=== PATIENT | male | born 1980 | race Caucasian/White ===

== ENCOUNTER 2022-05-17 11:23 | Day surgery (SDC) | payer OTHER ==
[2022-05-15 10:16] LABS: BASOPHILS % (AUTO) 0.5 % (0-1); EOSINOPHILS # (AUTO) 0.7 X10'3 (0-0.9); EOSINOPHILS % (AUTO) 8.2 % (0-6); LYMPHOCYTES # (AUTO) 2.2 X10'3 (1.1-4.8); LYMPHOCYTES % (AUTO) 25.9 % (21-51); MEAN CORPUSCULAR HEMOGLOBIN 29.7 PG (27.0-31.0); MEAN CORPUSCULAR HGB CONC 33.8 g/dL (33.0-36.5); MEAN CORPUSCULAR VOLUME 88.1 FL (78-98); MEAN PLATELET VOLUME 8.4 FL (7.4-10.4); MONOCYTES # (AUTO) 0.6 X10'3 (0-0.9); MONOCYTES % (AUTO) 7.4 % (2-12); NEUTROPHILS # (AUTO) 4.8 X10'3 (1.8-7.7); PRE OP HEMATOCRIT 48.1 % (42.0-52.0); PRE OP HEMOGLOBIN 16.2 g/dL (14.0-17.9); PRE OP PLATELET COUNT 226 X10'3 (140-440); RED BLOOD COUNT 5.46 X10'6 (4.70-6.10)
[2022-05-15 10:28] LABS: ALKALINE PHOSPHATASE 92 IU/L (46-116); BLOOD UREA NITROGEN 12 MG/DL (7-18); BUN/CREATININE RATIO 12.6 (5.4-32.0); CALCIUM 9.1 MG/DL (8.5-10.1); CHLORIDE 102 MMOL/L (99-107); CREATININE 0.95 MG/DL (0.60-1.10); PRE OP ALT 39 U/L (30-65); PRE OP ANION GAP 8 (8-16); PRE OP AST 25 U/L (10-37); PRE OP BILIRUB, TOTAL 0.5 MG/DL (0.0-1.0); PRE OP GLUCOSE 105 MG/DL (70-104); PRE OP POTASSIUM 3.8 MMOL/L (3.4-5.1); PRE OP SODIUM 136 MMOL/L (135-145); TOTAL CARBON DIOXIDE 26.5 MMOL/L (24-32); TOTAL PROTEIN 8.1 G/DL (6.4-8.2); eGFR 88 ML/MIN
[2022-05-17] VITALS (10 sets, daily range): BP systolic 104–144; BP diastolic 66–97
[~2022-05-17] VITALS: Ht 182.9 cm; Wt 108.9 kg
[~2022-05-17 11:23] MED LIST: NO HOME MEDS; ceFAZolin inj. 2,000 MG in dextrose 5%-water 100 ML IV ONE; famotidine 20mg tablet PO ONE; ringers solution, lacted 1,000 ML IV SCH
[2022-05-17] MEDS ORDERED: BUPIVAcaine 0.5% inj/PF 30 ML ONE (12:57)
[2022-05-17] MEDS ORDERED: neostigmine methylsulfate 1 MG/ML 10ml vial ONE (14:49)
[2022-05-17] MEDS ORDERED: glycopyrrolate 0.2mg/ml inj ONE (14:49)
[2022-05-17] MEDS ORDERED: sevoflurane 250ml liquid IH ONE (14:49)
[2022-05-17] MEDS ORDERED: fentaNYL/PF 50MCG/1 ML 2ML syringe ONE ×2 (14:53→15:38)
[2022-05-17] MEDS ORDERED: midazolam 1 mg/ML 2ml injection ONE (14:53)
[2022-05-17] MEDS ORDERED: BUPIVAcaine 0.5% inj/PF 30 ml vial IJ ONE (15:50)
[2022-05-17] MEDS ORDERED: dexamethasone sod phosphate 4mg/ml inj. ONE (16:04)
[2022-05-17] MEDS ORDERED: ROPIVAcaine 0.5% (5mg/ml) 30ml vial ONE (16:04)
[2022-05-17] MEDS ORDERED: ondansetron/PF 4mg/2ml inj ONE (16:04)
[2022-05-17] MEDS ORDERED: propofol inj 20 ML IV ONE (16:04)
[2022-05-17] MEDS ORDERED: acetaminophen 1,000mg/100ml IV 100 ML IV ONE ×2 (16:04)
[2022-05-17] MEDS ORDERED: morphine 2 MG/ML inj. syringe IV PRN (16:10)
[2022-05-17] MEDS ORDERED: ondansetron/PF 4mg/2ml inj IV PRN (16:10)
[2022-05-17] MEDS ORDERED: ringers solution, lacted 1,000 ML IV SCH (16:10)
[2022-05-17] MEDS ORDERED: morphine 4 MG/ML inj SYRINge IV PRN (16:10)
[2022-05-17] MEDS ORDERED: proCHLORperazine 10 MG/2 ml inj IV PRN (16:10)
[2022-05-17] MEDS ORDERED: meperidine/PF 25mg/ml syringe IV PRN ×3 (16:10)
[2022-05-17] MEDS ORDERED: gelatin sponge, absorbable (Gelfoam 100) sponge TP ONE (16:16)
[2022-05-17] MEDS ORDERED: Thrombin (Bovine) 5,000 unit vial TP ONE (16:16)
[2022-05-17] MEDS ORDERED: bacitracin 15gm ointment TP ONE (17:17)
--- NOTE | 2022-05-17 17:33 | NUR ---
Received from OR via [facility], accompanied by Anesthesiologist and report given by AYANA Anesthesiologist. PATIENT VERY DROWSY, NO S/S OF PAIN, V/S WNL, 20G TO RORY, LEFT ARM DRESSING C/D/I with ARM SLING. Addendum: 05/17/22 at 1800 by Brendon Moreau RN Amended: Links added.
--- NOTE | 2022-05-17 18:48 | NUR ---
ALL DISCHARGE CRITERIA HAS BEEN MET. VSS, PAIN AT A TOLERABLE LEVEL, ABLE TO SAFELY AMBULATE AND TRANSFER SELF. IV TAKEN OUT WITHOUT ANY COMPLICATIONS. ALL DISCHARGE INSTRUCTIONS COVERED WITH PATIENT AND ALL QUESTIONS ANSWERED. PATIENT TAKEN OUT VIA WHEELCHAIR WITH ALL BELONGINGS TO PERSONAL VEHICLE WHERE FAMILY DROVE PATIENT HOME. Addendum: 05/17/22 at 1908 by Brendon Moreau RN Amended: Links added.
== END 2022-05-17 18:48 | disposition home or self-care (01) ==
LOC: PAS 11:23
PROVIDERS: ATTEND Orthopaedic Surgery
DX: S46.212A Strain of muscle, fascia and tendon of other parts of biceps, left arm, initial encounter (principal); G89.18 Other acute postprocedural pain; E66.9 Obesity, unspecified; Z68.32 Body mass index [BMI] 32.0-32.9, adult; X58.XXXA Exposure to other specified factors, initial encounter; Y93.89 Activity, other specified; Y92.89 Other specified places as the place of occurrence of the external cause; Y99.8 Other external cause status
CPT/HCPCS: 24342; 36415; 64415; 80053; 82948; 85025; 93005; C1713; J0131; J0690; J1100; J2250; J2405; J2704; J2710; J2795; J3010; J3490; J7030; J7060; J7120; S0020; Z7506; Z7508; Z7512; A4215; A4565; A4618; A6449; A7000